=== PATIENT | female | born 1980 | race Caucasian/White ===

== ENCOUNTER 2023-05-22 07:47 | Observation (INO) ==
[2023-05-22 08:23] LABS: Hematocrit 34.8 % (35-45); Hemoglobin 11.9 g/dL (11.5-14.3); Mean Corpuscular Hemoglobin 32.4 pg (27-33); Mean Corpuscular Hgb Conc 34.1 g/dL (31-36); Mean Platelet Volume 6.7 fL (7.5-11.2); Platelet Count 246 10^3/uL (150-450); Red Blood Count 3.66 10^6/uL (3.63-4.92); Red Cell Distribution Width 14.5 % (12-17); White Blood Count 9.9 10^3/uL (3.8-11.8)
[2023-05-22] MEDS ORDERED: Lactated Ringers 1000 ml BAG 1,000 ML IV ONE (08:28)
[2023-05-22 08:39] LABS: Albumin 4.2 g/dL (3.2-5.2); Albumin/Globulin Ratio 1.4 (1-3); C Reactive Protein 71.71 mg/L (<8.01); Calcium 9.5 mg/dL (8.6-10.3); Creatinine, Serum 0.57 mg/dL (0.51-0.95); Globulin 3.1 g/dL (2-4); Magnesium 1.7 mg/dL (1.9-2.7); Total Bilirubin 0.4 mg/dL (0.2-1.0); Total Protein 7.3 g/dL (6.4-8.9); eGFR CKD-EPI 114.8 (>60)
[2023-05-22 08:47] LABS: ABS Eosinophils 0.1 10^3/uL (0.0-0.5); ABS Monocytes 1.6 10^3/uL (0.0-0.9); ABS Neutrophils 7.2 10^3/uL (1.5-7.6); Eosinophil % 1.1 %; Rapid COVID-19 Molecular Undetected (Undetected)
[2023-05-22 08:52] LABS: Urine Appearance Cloudy; Urine Bacteria 1+ (Absent); Urine Bilirubin Negative (Negative); Urine Blood 3+ (Negative); Urine Glucose Negative (Negative); Urine Ketones Negative (Negative); Urine Nitrite Negative (Negative); Urine Protein 2+(100 mg/dL) (Negative); Urine Red Blood Cell 3+(>10/hpf) (Absent); Urine Specific Gravity 1.006 (1.002-1.030); Urine Urobilinogen Negative (Negative); Urine White Blood Cell 1+(6-10/hpf) (Absent)
[2023-05-22] MEDS ORDERED: cefTRIAXone 1 gm/50 mL D5W 1 GM/50 ML BAG IV ONE (08:52)
[2023-05-22 08:54] LABS: Influenza A Molecular Negative (Negative); Influenza B Molecular Negative (Negative)
[2023-05-22 09:07] LABS: Urine Color Light-Red
[2023-05-22] MEDS ORDERED: Magnesium Sulfate IV 1GM/100ML 1 GM/100 ML BAG IV ONE (10:59)
[2023-05-22] MEDS ORDERED: Buprenorphine 2 mg SL TAB SL ONE (13:04)
[2023-05-22] MEDS ORDERED: Nicotine GUM 4MG FRUIT FLAVOR PO ONE (13:16)
[2023-05-22] MEDS ORDERED: methylPREDNISolone SOD SUCC 1000 MG ML VIAL IVPB ONE (14:27)
[2023-05-22] MEDS ORDERED: methylPREDNISolone SOD SUCC 1000 MG in NS 0.9% 100 ML IVPB ONE (15:00)
[2023-05-22] MEDS ORDERED: Magnesium Hydroxide LIQ 30 ML UDC PO PRN (15:39)
[2023-05-22] MEDS ORDERED: Senna TAB 8.6 mg TAB PO PRN (15:43)
[2023-05-22] MEDS ORDERED: BUPRENORPHINE NALOXONE BUCCAL SCH (15:45)
[2023-05-22] MEDS: Amphetamine MIXED SALT 10mgTAB PO SCH (17:06)
[2023-05-22] MEDS: Polyethylene Glycol 3350 17 GM PACKET PO SCH (17:06)
[2023-05-22 19:07] LABS: Urine Benzodiazepine Screen None Detected (None Detect); Urine Cannabinoids Screen None Detected (None Detect); Urine Opiates Screen None Detected (None Detect)
[2023-05-22] MEDS ORDERED: SENNOSIDES DOCUSATE SODIUM PO SCH (21:00)
[2023-05-22] MEDS: Enoxaparin 40 MG/0.4 ML SYR SUBCUT SCH (22:07)
[2023-05-22] MEDS: Lidocaine PATCH 5% PATCH TRANSDERM SCH (22:07)
[2023-05-22] MEDS: Nicotine GUM 2MG FRUIT FLAVOR PO PRN (22:24)
[2023-05-23 06:17] LABS: Hematocrit 30.1 % (35-45); Hemoglobin 10.5 g/dL (11.5-14.3); Mean Corpuscular Hemoglobin 33.1 pg (27-33); Mean Corpuscular Hgb Conc 34.9 g/dL (31-36); Mean Corpuscular Volume 94.8 fL (80-97); Mean Platelet Volume 6.8 fL (7.5-11.2); Platelet Count 263 10^3/uL (150-450); Red Blood Count 3.17 10^6/uL (3.63-4.92); Red Cell Distribution Width 14.4 % (12-17); White Blood Count 4.5 10^3/uL (3.8-11.8)
[2023-05-23 06:34] LABS: Creatinine, Serum 0.64 mg/dL (0.51-0.95); Magnesium 2.3 mg/dL (1.9-2.7); Potassium 4.1 mmol/L (3.5-5.0); eGFR CKD-EPI 111.7 (>60)
[2023-05-23] MEDS: Buprenorp/Nalox 2-0.5 mg SL TB SL SCH ×3 (08:43→12:25)
[2023-05-23] MEDS: Polyethylene Glycol 3350 17 GM PACKET PO SCH ×3 (08:43→21:39)
[2023-05-23] MEDS: Lidocaine PATCH 5% PATCH TRANSDERM SCH ×2 (08:44→21:29)
[2023-05-23] MEDS: Amphetamine MIXED SALT 10mgTAB PO SCH ×2 (08:45→14:20)
[2023-05-23] MEDS ORDERED: cefTRIAXone 1 gm/50 mL D5W 1 GM/50 ML BAG IV SCH (09:00)
[2023-05-23] MEDS ORDERED: CRANBERRY 500 MG PO SCH (09:00)
[2023-05-23] MEDS: Nicotine GUM 2MG FRUIT FLAVOR PO PRN ×6 (09:09→22:39)
[2023-05-23] MEDS: cefTRIAXone 1 gm/50 mL D5W 1 GM/50 ML BAG IV SCH (09:15)
[2023-05-23] MEDS ORDERED: methylPREDNISolone SOD SUCC 1,000 MG in NS 0.9% 1000 ml BAG 1,000 ML IVPB ONE (12:00)
[2023-05-23] MEDS ORDERED: Morphine 2 MG/ML SYRINGE IV PRN (14:32)
[2023-05-23] MEDS ORDERED: Naloxone Nasal Spray 4 MG/0.1 ML NASAL.SPR INTRANASAL PRN (14:36)
[2023-05-23] MEDS: Enoxaparin 40 MG/0.4 ML SYR SUBCUT SCH (18:33)
[2023-05-23] MEDS: Nystatin TOP POWDER 15 GM BTL TOPICAL SCH (21:33)
[2023-05-23] MEDS: Morphine 2 MG/ML SYRINGE IV PRN (21:46)
[2023-05-24] MEDS: Nicotine GUM 2MG FRUIT FLAVOR PO PRN ×6 (01:07→17:00)
[2023-05-24] MEDS: Morphine 2 MG/ML SYRINGE IV PRN ×2 (01:51→11:04)
[2023-05-24 06:11] LABS: Hematocrit 31.9 % (35-45); Hemoglobin 10.9 g/dL (11.5-14.3); Mean Corpuscular Hemoglobin 32.5 pg (27-33); Mean Corpuscular Hgb Conc 34.1 g/dL (31-36); Mean Corpuscular Volume 95.2 fL (80-97); Platelet Count 276 10^3/uL (150-450); Red Blood Count 3.35 10^6/uL (3.63-4.92); Red Cell Distribution Width 14.1 % (12-17); White Blood Count 5.3 10^3/uL (3.8-11.8)
[2023-05-24 06:28] LABS: Calcium 9.2 mg/dL (8.6-10.3); Creatinine, Serum 0.47 mg/dL (0.51-0.95); Magnesium 2.3 mg/dL (1.9-2.7); Potassium 4.1 mmol/L (3.5-5.0); eGFR CKD-EPI 120.3 (>60)
[2023-05-24] MEDS ORDERED: Sulfamethox/Trimethoprim SS TAB 400/80 mg PO SCH (09:00)
[2023-05-24] MEDS: Polyethylene Glycol 3350 17 GM PACKET PO SCH (09:16)
[2023-05-24] MEDS: Amphetamine MIXED SALT 10mgTAB PO SCH ×2 (09:16→14:48)
[2023-05-24] MEDS: Lidocaine PATCH 5% PATCH TRANSDERM SCH (09:18)
[2023-05-24] MEDS: cefTRIAXone 1 gm/50 mL D5W 1 GM/50 ML BAG IV SCH (09:18)
[2023-05-24] MEDS: Nystatin TOP POWDER 15 GM BTL TOPICAL SCH (09:18)
[2023-05-24] MEDS ORDERED: methylPREDNISolone SOD SUCC 1,000 MG in NS 0.9% 1000 ml BAG 1,000 ML IVPB ONE (13:00)
[2023-05-24 13:24] VITALS: BP 117/80
[2023-05-24] MEDS: Buprenorp/Nalox 2-0.5 mg SL TB SL SCH (14:53)
== END 2023-05-24 17:19 ==
LOC: ED 07:47 → EDHOLD 07:47 → MED 16:39
PROVIDERS: ADMIT Family Medicine; ATTEND Family Medicine

== ENCOUNTER 2024-05-16 15:02 | Inpatient (IN) ==
[2024-05-16] MEDS: Lactated Ringers SEPSIS* BAG 1,780 ML IV ONE (15:34)
[2024-05-16 15:45] LABS: ABS Lymphocytes 0.1 10^3/uL (1.0-4.8); ABS Monocytes 0.5 10^3/uL (0.0-0.9); ABS Neutrophils 8.2 10^3/uL (1.5-7.6); Hemoglobin 12.7 g/dL (11.5-14.3); Mean Corpuscular Hemoglobin 33.1 pg (27-33); Mean Corpuscular Hgb Conc 34.3 g/dL (31-36); Mean Corpuscular Volume 96.4 fL (80-97); Mean Platelet Volume 6.6 fL (7.5-11.2); Platelet Count 275 10^3/uL (150-450); Red Blood Count 3.84 10^6/uL (3.63-4.92); Red Cell Distribution Width 13.7 % (12-17); White Blood Count 8.8 10^3/uL (3.8-11.8)
[2024-05-16] MEDS: Ondansetron 4 mg VIAL 2 MG/ML 2 ml VIAL IV ONE (15:53)
[2024-05-16 16:11] LABS: High Sens Troponin Baseline 4 pg/mL (<15)
[2024-05-16 16:12] LABS: INR 1.12 (0.85-1.14)
[2024-05-16 16:38] LABS: ALT 25 U/L (7-52); AST 29 U/L (13-39); Albumin 4.1 g/dL (3.5-5.7); Albumin/Globulin Ratio 1.6 (1-3); Alkaline Phosphatase 78 U/L (35-149); Anion Gap 9 mmol/L (2-16); Blood Urea Nitrogen 19 mg/dL (6-24); C Reactive Protein 68.53 mg/L (<8.01); CO2 Carbon Dioxide 28 mmol/L (22-32); Chloride 102 mmol/L (101-111); Creatinine, Serum 0.45 mg/dL (0.51-0.95); Globulin 2.5 g/dL (2-4); Glucose 154 mg/dL (70-100); Potassium 3.4 mmol/L (3.5-5.0); Sodium 139 mmol/L (135-145); Total Bilirubin 0.5 mg/dL (0.2-1.0); Total Protein 6.6 g/dL (6.4-8.9); eGFR CKD-EPI 120.8 (>60)
[2024-05-16 16:48] LABS: Lipase 15 U/L (11.0-82.0)
[2024-05-16 16:53] LABS: HCG Pregnancy < 0.60 mIU/mL
[2024-05-16 17:21] LABS: High Sensitivity Troponin 1 Hr 4 pg/mL (<15)
[2024-05-16] MEDS: Iohexol 350 (CONTRAST) 500 ML MDV IV ONE (17:59)
[2024-05-16] MEDS: cefTRIAXone 1 gm/50 mL D5W 1 GM/50 ML BAG IV ONE (20:07)
[2024-05-16] MEDS: Albuterol 2.5mg/3 ml (0.083%) NEB.SOLN INH SCH (21:47)
[2024-05-16] MEDS: Azithromycin 500 mg/250 ml NS 500 MG/250 ML BAG IVPB ONE (21:56)
[2024-05-16] MEDS ORDERED: Zosyn per Pharmacy NOTE FOLLOW UP SCH (22:00)
[2024-05-16 23:10] LABS: Urine Appearance Clear; Urine Bacteria Absent /HPF (Absent); Urine Bilirubin Negative (Negative); Urine Blood 3+ (Negative); Urine Color Yellow; Urine Glucose Negative (Negative); Urine Ketones Trace (Negative); Urine Nitrite Negative (Negative); Urine Protein 1+ (>=30 mg/dL) (Negative); Urine Red Blood Cell 3+(>10/hpf) /HPF (0-Trace); Urine Specific Gravity >1.050 (1.002-1.030); Urine Squamous Epithelial Cell Present /HPF (Absent); Urine Urobilinogen Negative (Negative); Urine White Blood Cell 3+(>20/hpf) /HPF (0-Trace)
[2024-05-16] MEDS: Mineral Oil ENEMA 118 ML/BOTTLE BOTTLE PR ONE (23:22)
[2024-05-16] MEDS: Piperacillin/Tazobac 3.375 BAG 3.375 GM/100 ML BAG IV ONE (23:22)
[2024-05-16] MEDS: Ondansetron 4 mg VIAL 2 MG/ML 2 ml VIAL IV PRN (23:30)
[2024-05-16] MEDS: NS 0.9% w/ 40 Meq KCL 1000 ML 1,000 ML IV SCH (23:31)
[2024-05-17] MEDS ORDERED: ZOSYN 3.375 GM Q8H per EXTENDED INFUSION IV SCH
[2024-05-17] MEDS: ZOSYN 3.375 GM Q8H per EXTENDED INFUSION IV SCH (04:22)
[2024-05-17 06:25] LABS: ABS Lymphocytes 0.2 10^3/uL (1.0-4.8); ABS Monocytes 0.7 10^3/uL (0.0-0.9); ABS Neutrophils 5.2 10^3/uL (1.5-7.6); Eosinophil % 0.1 %; Hematocrit 31.9 % (35-45); Hemoglobin 11.2 g/dL (11.5-14.3); Lymphocyte % 3.7 %; Mean Corpuscular Hemoglobin 34.3 pg (27-33); Mean Corpuscular Hgb Conc 35.2 g/dL (31-36); Mean Corpuscular Volume 97.4 fL (80-97); Mean Platelet Volume 6.6 fL (7.5-11.2); Platelet Count 204 10^3/uL (150-450); Red Blood Count 3.27 10^6/uL (3.63-4.92); Red Cell Distribution Width 13.8 % (12-17); White Blood Count 6.2 10^3/uL (3.8-11.8)
[2024-05-17 06:48] LABS: Calcium 7.5 mg/dL (8.6-10.3); Creatinine, Serum 0.43 mg/dL (0.51-0.95); Potassium 3.9 mmol/L (3.5-5.0); eGFR CKD-EPI 122.2 (>60)
[2024-05-17] MEDS: Polyethylene Glycol 3350 17 GM PACKET PO SCH (09:11)
[2024-05-17] MEDS: DULoxetine DR 20 mg CAP PO SCH (09:12)
[2024-05-17] MEDS: Amphetamine MIXED SALT 10mgTAB PO SCH (09:13)
[2024-05-17] MEDS: CMCS:Meloxicam 7.5 mg TAB (NF) PO SCH (09:15)
[2024-05-17] MEDS: Nicotine GUM 4MG FRUIT FLAVOR PO PRN (10:32)
[2024-05-17] MEDS: Ondansetron ODT 4 mg TAB 4 MG TAB SL PRN (10:32)
[2024-05-17] MEDS: cefTRIAXone 1 gm/50 mL D5W 1 GM/50 ML BAG IV SCH (11:27)
[2024-05-17] MEDS: Lidocaine PATCH 5% PATCH TRANSDERM SCH (17:05)
[2024-05-18] MEDS: Morphine 4 MG/ML VIAL (1 ml) IV PRN (01:36)
[2024-05-18 06:50] LABS: ABS Eosinophils 0.1 10^3/uL (0.0-0.5); ABS Lymphocytes 0.7 10^3/uL (1.0-4.8); ABS Monocytes 0.6 10^3/uL (0.0-0.9); ABS Nucleated RBC 0.01 10^3/ul; Eosinophil % 3.3 %; Hematocrit 29.2 % (35-45); Hemoglobin 10.4 g/dL (11.5-14.3); Lymphocyte % 15.2 %; Mean Corpuscular Hemoglobin 34.3 pg (27-33); Mean Corpuscular Hgb Conc 35.7 g/dL (31-36); Mean Corpuscular Volume 96.1 fL (80-97); Mean Platelet Volume 6.9 fL (7.5-11.2); Nucleated Red Blood Cells % 0.1 %/100WBC (0.0-0.8); Platelet Count 188 10^3/uL (150-450); Red Blood Count 3.03 10^6/uL (3.63-4.92); Red Cell Distribution Width 13.4 % (12-17); White Blood Count 4.5 10^3/uL (3.8-11.8)
[2024-05-18 07:03] LABS: Albumin 2.9 g/dL (3.5-5.7); Albumin/Globulin Ratio 1.5 (1-3); Calcium 7.7 mg/dL (8.6-10.3); Creatinine, Serum 0.35 mg/dL (0.51-0.95); Globulin 1.9 g/dL (2-4); Total Bilirubin 0.3 mg/dL (0.2-1.0); Total Protein 4.8 g/dL (6.4-8.9); eGFR CKD-EPI 128.4 (>60)
[2024-05-18 07:57] LABS: C Reactive Protein 64.77 mg/L (<8.01)
[2024-05-19 08:31] LABS: ABS Eosinophils 0.3 10^3/uL (0.0-0.5); ABS Lymphocytes 1.2 10^3/uL (1.0-4.8); ABS Monocytes 0.4 10^3/uL (0.0-0.9); ABS Neutrophils 1.7 10^3/uL (1.5-7.6); Eosinophil % 7.7 %; Hematocrit 29.9 % (35-45); Hemoglobin 10.4 g/dL (11.5-14.3); Lymphocyte % 32.9 %; Mean Corpuscular Hemoglobin 33.4 pg (27-33); Mean Corpuscular Hgb Conc 34.6 g/dL (31-36); Mean Corpuscular Volume 96.4 fL (80-97); Nucleated Red Blood Cells % 0.1 %/100WBC (0.0-0.8); Platelet Count 220 10^3/uL (150-450); Red Blood Count 3.11 10^6/uL (3.63-4.92); Red Cell Distribution Width 13.6 % (12-17); White Blood Count 3.7 10^3/uL (3.8-11.8)
[2024-05-19 09:04] LABS: Creatinine, Serum 0.4 mg/dL (0.51-0.95); Potassium 4.1 mmol/L (3.5-5.0); eGFR CKD-EPI 124.3 (>60)
[2024-05-19] MEDS ORDERED: Senna TAB 8.6 mg TAB PO PRN (10:40)
[2024-05-19] MEDS ORDERED: Magnesium Hydroxide LIQ 30 ML UDC PO PRN (10:40)
[2024-05-19] MEDS: cefTRIAXone 1 gm/50 mL D5W 1 GM/50 ML BAG IV SCH (13:13)
[2024-05-19] MEDS: Albuterol 2.5mg/3 ml (0.083%) NEB.SOLN INH PRN (16:05)
[2024-05-19] MEDS: Albuterol 2.5mg/3 ml (0.083%) NEB.SOLN INH SCH (21:50)
[2024-05-20] MEDS ORDERED: Albuterol 2.5mg/3 ml (0.083%) NEB.SOLN INH PRN (20:21)
[2024-05-21] MEDS: Amphetamine MIXED SALT 10mgTAB PO SCH (10:01)
[2024-05-22 10:53] LABS: ABS Eosinophils 0.1 10^3/uL (0.0-0.5); ABS Monocytes 0.5 10^3/uL (0.0-0.9); ABS Neutrophils 2.2 10^3/uL (1.5-7.6); Hematocrit 37.2 % (35-45); Hemoglobin 12.6 g/dL (11.5-14.3); Lymphocyte % 27.1 %; Mean Corpuscular Hemoglobin 33.4 pg (27-33); Mean Corpuscular Volume 98.3 fL (80-97); Mean Platelet Volume 6.8 fL (7.5-11.2); Platelet Count 284 10^3/uL (150-450); Red Blood Count 3.78 10^6/uL (3.63-4.92); Red Cell Distribution Width 13.8 % (12-17); White Blood Count 3.8 10^3/uL (3.8-11.8)
[2024-05-22 13:52] LABS: Albumin 3.8 g/dL (3.5-5.7); Albumin/Globulin Ratio 1.6 (1-3); Calcium 9.3 mg/dL (8.6-10.3); Creatinine, Serum 0.42 mg/dL (0.51-0.95); Globulin 2.4 g/dL (2-4); Potassium 4.4 mmol/L (3.5-5.0); Total Bilirubin 0.4 mg/dL (0.2-1.0); Total Protein 6.2 g/dL (6.4-8.9); eGFR CKD-EPI 122.9 (>60)
[2024-05-22] MEDS: Mineral Oil ENEMA 118 ML/BOTTLE BOTTLE PR SCH ×2 (18:18→20:32)
[2024-05-23] MEDS: Lactulose 30 ml UDC PO ONE (11:03)
[2024-05-23] MEDS: Magnesium Hydroxide LIQ 30 ML UDC PO SCH (11:03)
[2024-05-23] MEDS: Mineral Oil ENEMA 118 ML/BOTTLE BOTTLE PR ONE (12:54)
[2024-05-23] MEDS: Senna TAB 8.6 mg TAB PO SCH (21:35)
[2024-05-24] MEDS: Lactulose 30 ml UDC PO ONE ×2 (10:59→14:05)
[2024-05-28 16:26] LABS: Albumin 3.7 g/dL (3.5-5.7); Albumin/Globulin Ratio 1.7 (1-3); Creatinine, Serum 0.64 mg/dL (0.51-0.95); Globulin 2.2 g/dL (2-4); Potassium 4.3 mmol/L (3.5-5.0); Total Bilirubin 0.2 mg/dL (0.2-1.0); Total Protein 5.9 g/dL (6.4-8.9)
[2024-05-29 06:24] LABS: ABS Eosinophils 0.1 10^3/uL (0.0-0.5); ABS Lymphocytes 1.6 10^3/uL (1.0-4.8); ABS Monocytes 0.8 10^3/uL (0.0-0.9); ABS Neutrophils 2.5 10^3/uL (1.5-7.6); ABS Nucleated RBC 0.01 10^3/ul; Eosinophil % 2.2 %; Hematocrit 32.4 % (35-45); Lymphocyte % 30.6 %; Mean Corpuscular Hemoglobin 33.4 pg (27-33); Mean Corpuscular Hgb Conc 33.9 g/dL (31-36); Mean Corpuscular Volume 98.3 fL (80-97); Mean Platelet Volume 6.7 fL (7.5-11.2); Nucleated Red Blood Cells % 0.2 %/100WBC (0.0-0.8); Platelet Count 337 10^3/uL (150-450); Red Cell Distribution Width 14.1 % (12-17); White Blood Count 5.1 10^3/uL (3.8-11.8)
[2024-05-31] MEDS ORDERED: Acetaminophen IV 1 GM/100ML 1,000 MG/100 ML BAG IV PRN (06:18)
[2024-06-04] MEDS: Amphetamine MIXED SALT 10mgTAB PO SCH (15:25)
[2024-06-05] MEDS ORDERED: Sodium Phosphate ADULT ENEMA 133 ML BTL PR PRN (07:59)
[2024-06-06 10:48] VITALS: BP 93/65
== END 2024-06-06 11:30 | DRG 137 ==
LOC: ED 15:02 → EDHOLD 15:02 → SUATTDRO 21:06 → MED 05-17 15:07 → SUATTDRO 05-22 12:00
PROVIDERS: ADMIT Internal Medicine; ATTEND Student in an Organized Health Care Education/Training Program